=== PATIENT | female | born 1985 | race Caucasian/White ===

== ENCOUNTER 2017-08-09 15:42 | Emergency (ER) | payer OTHER ==
[2017-08-09 16:01] VITALS: BP 111/55
--- NOTE | 2017-08-09 16:25 | UC ---
UC General HPI - History of Current Complaint Chief Complaint: UCGeneralIllness Stated Complaint: LYME SYMPTOMS Time Seen by Provider: 08/09/17 16:08 Hx Obtained From: Patient Hx Last Menstrual Period: one week ago Onset/Duration: Gradual Onset - pt has experienced dull headache and fever ( tactile-sweating, chills) over past week. had joint pain (migratory) for 24 hours and resolved. no rash at any time. she has removed many ticks from body, some were embedded for les than 24h, however, her has been treated for confirmed Lyme in past. Pt had negative Lyme titer 1 1/2y ago Associated Signs & Symptoms: Positive: Fever, Headache - Allergy/Home Medications Allergies/Adverse Reactions: Allergies Allergy/AdvReac Type Severity Reaction Status Date / Time Love Oil Allergy Swelling Verified 08/09/17 16:01 Of Face,Lips,& Throat Home Medications: Home Medications NK [No Home Medications Reported] 08/09/17 [History Confirmed 08/09/17] PMH/Surg Hx/FS Hx/Imm Hx Previously Healthy: Yes - Surgical History Surgical History: None - Family History Known Family History: Positive: None - Social History Occupation: Employed Full-time Lives: With Family Alcohol Use: Occasionally Substance Use Type: None Smoking Status (MU): Never Smoked Tobacco Review of Systems Constitutional: Fever, Chills Musculoskeletal: Arthralgia - resolved All Other Systems Reviewed And Are Negative: Yes Physical Exam Triage Information Reviewed: Yes Appearance: Well-Appearing, No Pain Distress, Well-Nourished Vital Signs: Initial Vital Signs Temp 98.1 F 08/09/17 15:58 Pulse 72 08/09/17 15:58 Resp 12 08/09/17 15:58 BP 111/55 08/09/17 15:58 Pulse Ox 100 08/09/17 15:58 Vital Signs Reviewed: Yes Neck exam: Normal Neck: Positive: Supple, Nontender, No Lymphadenopathy Respiratory Exam: Normal Cardiovascular Exam: Normal Musculoskeletal Exam: Normal Musculoskeletal: Positive: Strength Intact, ROM Intact, No Edema Neurological Exam: Normal Neurological: Positive: Alert Psychological Exam: Normal Skin Exam: Normal Skin: Negative: rashes Course/Dx - Differential Dx - Multi-Symptom Differential Diagnoses: Other - Lyme disease, viral illness, flu Provider Diagnoses: headache, fever Discharge - Discharge Plan Condition: Stable Disposition: HOME Patient Education Materials: Lyme Disease (ED) Additional Instructions: we are testing you for Lyme disease. PLease follow-up with lab results next week. use ibuprofen (over the counter) for fever and pain Return if you symptoms worsen at anytime
[2017-08-10 14:29] LABS: Hematocrit 39 % (35-47); Mean Corpuscular HGB Conc 35 g/dl (31-36); Mean Corpuscular Hemoglobin 32 pg (27-31); Mean Corpuscular Volume 89 fL (80-97); Mean Platelet Volume 9 um3 (7.4-10.4); Red Blood Count 4.43 10^6/ul (4.0-5.4); Red Cell Distribution Width 12 % (10.5-15); White Blood Count 4.7 10^3/ul (3.5-10.8)
--- NOTE | 2017-08-10 16:36 | UC ---
Progress - Progress Note Progress Note: CALL PATIENT CBC NORMAL, CRP ELEVATED, LYME PENDING. IF WORSE ER.
== END 2017-08-09 16:39 | disposition home or self-care (01) ==
LOC: UCEAST 15:42
DX: R51 Headache (principal); R50.9 Fever, unspecified
CPT/HCPCS: 36415; 85025; 86140; 86618; 99211; G0463